=== PATIENT | female | born 1960 | race Caucasian/White ===

== ENCOUNTER 2021-11-01 09:50 | Emergency (ER) | payer MEDICARE, MEDICAID, SELFPAY ==
--- NOTE | ~2021-11-01 | CT_ITS ---
EXAMINATION: CT ABDOMEN AND PELVIS WITHOUT CONTRAST CLINICAL INFORMATION: Hematuria COMPARISON: None TECHNIQUE: Multidetector volumetric imaging was performed from the superior aspect of the liver through the pubic symphysis. Sagittal and coronal reformatted images were obtained on the technologist's workstation. This CT examination was performed using dose optimization techniques as appropriate, variously including the following: *Automated exposure control *Adjustment of mA and/or kV according to patient size (this includes techniques or standardized protocols for targeted exams where dose is matched to indication/reason for exam; i.e. extremities or head) *Use of iterative reconstruction technique DLP: 9 7 mGy-cm FINDINGS: LUNG BASES: The visualized lung bases are unremarkable. LIVER, GALLBLADDER, AND BILIARY TREE: The liver is normal in size, shape, and attenuation. No focal hepatic lesion or biliary ductal dilatation is present. The gallbladder is unremarkable with no evidence of radiopaque gallstones, gallbladder wall thickening, or obvious pericholecystic inflammatory changes. PANCREAS: Unremarkable. SPLEEN: Unremarkable. ADRENAL GLANDS: Unremarkable. KIDNEYS AND URETERS: The kidneys are normal in size, shape, and attenuation. There is a small 3 mm nonobstructing stone in the upper pole of the left kidney. No hydronephrosis. No perinephric stranding. BLADDER: Unremarkable. GASTROINTESTINAL TRACT: There is diverticulosis of the colon. There is wall thickening of the proximal sigmoid colon and stranding of the surrounding fat probably representing sigmoid diverticulitis. There are prominent adjacent pericolic lymph nodes. Imaging follow-up to exclude The small and large bowel are otherwise unremarkable. The appendix is unremarkable. No evidence of obstruction, perforation or abscess is seen. ABDOMINAL WALL: No significant hernia is appreciated. LYMPH NODES: Normal. VASCULAR: There is evidence of atherosclerotic disease. PELVIC VISCERA: Unremarkable. OSSEOUS STRUCTURES: There are degenerative changes of the spine. CT/CT abdomen pelvis wo con IMPRESSION: Sigmoid diverticulitis. There are prominent adjacent pericolic lymph nodes and imaging follow-up to ensure resolution recommended. Small nonobstructing left renal stone. Fleischner guidelines were followed.
[2021-11-01 10:12] VITALS: BP 149/94; PULSE 92; RESP 18; TEMP 36.7; O2SAT 99; BMI 39.1
--- NOTE | 2021-11-01 11:08 | ED_ITS ---
HPI - General Adult General Chief complaint: General Medical <JOLYNN Isidro - Last Filed: 11/01/21 13:09> Stated complaint: abd pain <JOLYNN Isidro Last Filed: 11/01/21 13:09> Time Seen by Provider: 11/01/21 11:08 <JOLYNN Isidro - Last Filed: 11/01/21 13:09> Source: patient <JOLYNN Isidro - Last Filed: 11/01/21 13:09> Mode of arrival: ambulatory <JOLYNN Isidro - Last Filed: 11/01/21 13:09> History of Present Illness HPI narrative: 60-year-old female with no significant past medical history presenting to the ED complaining of LLQ/suprapubic abdominal pain, nausea x6 days and hematuria x2 days. Also reports URI symptoms x1 week. Denies fever, chills, vomiting, diarrhea, constipation, dysuria <JOLYNN Isidro - Last Filed: 11/01/21 13:09> Onset (ago): day(s) <JOLYNN Isidro - Last Filed: 11/01/21 13:09> Related Data Home medications: Previous Rx's Medication Instructions Recorded ciprofloxacin HCl 500 mg tablet 500 mg PO BID 7 Days #14 tab 11/01/21 metronidazole 500 mg tablet 500 mg PO Q8H 7 Days #21 tab 11/01/21 ondansetron 4 mg disintegrating 4 mg PO Q8H PRN #10 tab 11/01/21 tablet <JOLYNN Isidro Last Filed: 11/01/21 13:09> Allergies/adverse reactions: Allergies Allergy/AdvReac Type Severity Reaction Status Date / Time amoxicillin [Augmentin] Allergy Unknown Unknown Verified 11/01/21 12:24 cheese Allergy Unknown UNKNOWN Verified 11/01/21 12:24 clavulanic acid [Augmentin] Allergy Unknown Rash Verified 11/01/21 12:24 fluconazole [Diflucan] Allergy Unknown Unknown Verified 11/01/21 12:24 lisinopril Allergy Unknown Unknown Verified 11/01/21 12:24 nitrofurantoin [Macrobid] Allergy Unknown Rash Verified 11/01/21 12:24 wheat [WHEAT] Allergy Unknown UNKNOWN Verified 11/01/21 12:24 CHOCOLATE Allergy Unknown UNKNOWN Uncoded 11/01/21 12:24 Tdap Allergy Unknown Unknown Uncoded 11/01/21 12:24 <JOLYNN Isidro - Last Filed: 11/01/21 13:09> Review of Systems Review of Systems: Constitutional: No Fever, No Chills, No Fatigue, No Malaise ENT/Mouth: No Ear Pain, No Nasal Congestion, No sore throat, No Rhinorrhea, No Swallowing Difficulty Eyes: No Eye Pain, No Swelling, No Redness, No Discharge Cardiovascular: No Chest Pain, No SOB, No Dyspnea on Exertion, No Orthopnea, No Edema Respiratory: No Cough, No Sputum, No Dyspnea Gastrointestinal: + Nausea, No Vomiting, No Diarrhea, No Constipation, + Abdominal pain, No rectal bleeding Genitourinary: No irregular bleeding, No Dysuria, + Urinary Frequency, + Hematuria, No Urinary Incontinence, No Urgency, No Flank Pain, No Urinary Flow Changes Musculoskeletal: No joint pain, No Myalgias, No Joint Swelling Skin: No Skin Lesions, No rash Neuro: No Weakness, No Numbness, No Headache <JOLYNN Isidro - Last Filed: 11/01/21 13:09> Yes all other systems are reviewed and are negative <JOLYNN Isidro Last Filed: 11/01/21 13:09> [facility] Past Medical History Attestation statement: The following information was validated with the patient. <JOLYNN Isidro - Last Filed: 11/01/21 13:09> Medical History: Medical History No known health problems <JOLYNN Isidro - Last Filed: 11/01/21 13:09> Social History Social History: Social History Advance Directives: Yes Advance Directives Information Provided: Yes Advance Directives on File: No Patient : No <JOLYNN Isidro - Last Filed: 11/01/21 13:09> Physical Exam ED Vital Signs: Vital Signs - 24 hr 11/01/21 10:12 11/01/21 12:04 Temperature 98.1 F 98.2 F Pulse Rate 92 86 Respiratory Rate 18 12 Blood Pressure 149/94 H 189/76 H Pulse Oximetry 99 99 BMI result Body Mass Index 39.1 <JOLYNN Isidro - Last Filed: 11/01/21 13:09> Const General: cooperative, healthy appearing, no acute distress, alert and awake <JOLYNN Isidro - Last Filed: 11/01/21 13:09> Orientation/consciousness: patient oriented x3 <JOLYNN Isidro - Last Filed: 11/01/21 13:09> Limitations: no limitations <JOLYNN Isidro - Last Filed: 11/01/21 13:09> HENMT Head: Yes normal to inspection <JOLYNN Isidro - Last Filed: 11/01/21 13:09> Ears: hearing grossly normal bilaterally <JOLYNN Isidro - Last Filed: 11/01/21 13:09> General nose exam: Normal external nose present <JOLYNN Isidro - Last Filed: 11/01/21 13:09> Face and sinus: Yes normal facial exam <JOLYNN Isidro - Last Filed: 11/01/21 13:09> Eyes General: appearance normal, both eyes and all related structures <JOLYNN Isidro - Last Filed: 11/01/21 13:09> EOM: EOMs intact bilaterally <JOLYNN Isidro - Last Filed: 11/01/21 13:09> Neck Neck: Yes normal visual inspection and Yes no meningeal signs <JOLYNN Isidro - Last Filed: 11/01/21 13:09> Resp Effort & Inspection: normal respiratory effort and no respiratory distress <JOLYNN Isidro - Last Filed: 11/01/21 13:09> Auscultation: clear to auscultation bilaterally <JOLYNN Isidro - Last Filed: 11/01/21 13:09> Cardio Rate: regular rate <JOLYNN Isidro - Last Filed: 11/01/21 13:09> Heart sounds: S1 normal heart sound present and S2 normal heart sound present <JOLYNN Isidro - Last Filed: 11/01/21 13:09> GI Inspection: Yes normal to inspection <JOLYNN Isidro - Last Filed: 11/01/21 13:09> Palpation (GI): Soft to palpation, Tenderness to palpation present (GI) in the LLQ, no guarding and not rigid <JOLYNN Isidro - Last Filed: 11/01/21 13:09> General: Yes CVA tenderness on the left <JOLYNN Isidro - Last Filed: 11/01/21 13:09> Back/Spine/Pelvis Back: CVA tenderness <JOLYNN Isidro - Last Filed: 11/01/21 13:09> Skin Rashes: no rashes <JOLYNN Isidro - Last Filed: 11/01/21 13:09> Wounds: no wounds <JOLYNN Isidro - Last Filed: 11/01/21 13:09> Neuro General: patient oriented x3 and no meningeal signs <JOLYNN Isidro - Last Filed: 11/01/21 13:09> Gait exam (Neuro): Normal gait present <JOLYNN Isidro - Last Filed: 11/01/21 13:09> Extrem General: Yes normal to inspection <JOLYNN Isidro - Last Filed: 11/01/21 13:09> Course Course Course Narrative: -1254--no leukocytosis, BUN 18, bilirubin 1.4, labs otherwise unremarkable -COVID-19/influenza/RSV negative. UA infected CT abdomen pelvis wo con IMPRESSION: Sigmoid diverticulitis. There are prominent adjacent pericolic lymph nodes and imaging follow-up to ensure resolution recommended. Small nonobstructing left renal stone. Fleischner guidelines were followed. >> patient given 1st dose of Levaquin and Flagyl in the ED which will cover both diverticulitis and UTI. Discussed worrisome signs and symptoms and strict return precautions and needed close follow-up with PCP. Patient verbalized understanding and feel safe for discharge home at this time <JOLYNN Isidro - Last Filed: 11/01/21 13:09> Medical Decision Making MDM Narrative Medical decision making narrative: 60-year-old female with no significant past medical history presenting to the ED complaining of LLQ/suprapubic abdominal pain, nausea x6 days and h ematuria x2 days. On exam vital signs stable, NAD/non toxic appearing, abdomen soft with LLQ ttp no rebound or guarding, left CVA tenderness noted on exam. Concern for renal stone/renal colic vs pyelonephritis/UTI vs diverticulitis. Lower concern for SBO/appendicitis Plan: Labs, UA, CT abdomen/pelvis, IVF, symptomatic treatment, re-evaluate <JOLYNN Isidro - Last Filed: 11/01/21 13:09> Medical Records Medical records reviewed: Yes I reviewed the patient's medical records. <JOLYNN Isidro - Last Filed: 11/01/21 13:09> Lab Data Lab results reviewed: Yes I reviewed the patient's lab results. <JOLYNN Isidro - Last Filed: 11/01/21 13:09> Result diagrams: : 11/01/21 11:57 11/01/21 11:57 <JOLYNN Isidro - Last Filed: 11/01/21 13:09> Labs: Lab Results 11/01/21 11/01/21 11/01/21 Range/Units 11:54 11:57 11:57 WBC 10.3 (4.8-10.8) X10*3/uL RBC 4.10 L (4.20-5.50) X10*6/uL Hgb 12.6 (12.0-16.0) g/dl Hct 38.3 (37.0-47.0) % MCV 93.4 (80.0-98.0) fL MCH 30.7 (27.0-33.0) pg MCHC 32.9 (31.0-35.0) g/dl RDW 13.8 (11.0-16.0) % Plt Count 221 (160-400) X10*3/uL MPV 9.3 L (9.4-12.3) fL Immature Gran % (Auto) 0.3 (0.0-0.4) % Neut % (Auto) 70.6 (45-73) % Lymph % (Auto) 22.3 (20-40) % [place] % (Auto) 5.5 (2-11) % Eos % (Auto) 0.9 (0-4) % Baso % (Auto) 0.4 (0-2) % Lymph # (Auto) 2.3 (1.2-4.9) X10*3/uL [place] # (Auto) 0.6 (0.1-1.2) X10*3/uL Eos # (Auto) 0.1 (0.0-0.4) X10*3/uL Baso # (Auto) 0.0 (0.0-0.2) X10*3/uL Abs Immat Gran (auto) 0.03 (0.00-0.03) X10*3/uL Absolute Neuts (auto) 7.3 (2.0-8.3) x10*3/uL Absolute Nucleated RBC 0.000 (0.0-0.012) X10*3/uL Nucleated RBC % (auto) 0.0 (0.0-0.2) /100WBC Sodium 138 (135-145) mmol/L Potassium 4.3 (3.3-5.1) mmol/L Chloride 102 (96-108) mmol/L Carbon Dioxide 27 (22-29) mmol/L Anion Gap 13 (12-20) BUN 18 H (9-16) mg/dL Creatinine 0.84 (0.5-1.4) mg/dL Estim Creat Clear Calc 82.4 Estimated GFR > 60 Random Glucose 105 (60-115) mg/dL Calcium 9.5 (8.4-10.2) mg/dL Magnesium 2.2 (1.6-2.6) mg/dL Total Bilirubin 1.4 H (0.0-1.0) mg/dL Direct Bilirubin 0.5 (0.0-0.5) mg/dL AST 20 (5-31) U/L ALT 14 (0-31) U/L Alkaline Phosphatase 65 (39-117) U/L Total Protein 8.1 H (6.5-8.0) g/dL Albumin 4.3 (3.5-5.0) g/dL Lipase 19 (8-78) U/L Urine Color Urine Appearance Urine pH (5.0-8.0) Ur Specific [place] (1.005-1.025) Urine Protein (NEG-TRACE) MG/DL Urine Glucose (UA) (NEG) MG/DL Urine Ketones (NEG) MG/DL Urine Blood (NEG) Urine Nitrite (NEG) Ur Leukocyte Esterase (NEG) Urine RBC (0) /HPF Urine WBC (0-4) /HPF Ur Squamous Epith Cells /LPF Urine Bacteria /LPF Influenza Type A (PCR) NEGATIVE (Negative) Influenza Type B (PCR) NEGATIVE (Negative) RSV RNA Qual (PCR) NEGATIVE (Negative) SARS-CoV-2 RNA (RT-PCR) NEGATIVE (Negative) 11/01/21 Range/Units 12:06 WBC (4.8-10.8) X10*3/uL RBC (4.20-5.50) X10*6/uL Hgb (12.0-16.0) g/dl Hct (37.0-47.0) % MCV (80.0-98.0) fL MCH (27.0-33.0) pg MCHC (31.0-35.0) g/dl RDW (11.0-16.0) % Plt Count (160-400) X10*3/uL MPV (9.4-12.3) fL Immature Gran % (Auto) (0.0-0.4) % Neut % (Auto) (45-73) % Lymph % (Auto) (20-40) % [place] % (Auto) (2-11) % Eos % (Auto) (0-4) % Baso % (Auto) (0-2) % Lymph # (Auto) (1.2-4.9) X10*3/uL [place] # (Auto) (0.1-1.2) X10*3/uL Eos # (Auto) (0.0-0.4) X10*3/uL Baso # (Auto) (0.0-0.2) X10*3/uL Abs Immat Gran (auto) (0.00-0.03) X10*3/uL Absolute Neuts (auto) (2.0-8.3) x10*3/uL Absolute Nucleated RBC (0.0-0.012) X10*3/uL Nucleated RBC % (auto) (0.0-0.2) /100WBC Sodium (135-145) mmol/L Potassium (3.3-5.1) mmol/L Chloride (96-108) mmol/L Carbon Dioxide (22-29) mmol/L Anion Gap (12-20) BUN (9-16) mg/dL Creatinine (0.5-1.4) mg/dL Estim Creat Clear Calc Estimated GFR Random Glucose (60-115) mg/dL Calcium (8.4-10.2) mg/dL Magnesium (1.6-2.6) mg/dL Total Bilirubin (0.0-1.0) mg/dL Direct Bilirubin (0.0-0.5) mg/dL AST (5-31) U/L ALT (0-31) U/L Alkaline Phosphatase (39-117) U/L Total Protein (6.5-8.0) g/dL Albumin (3.5-5.0) g/dL Lipase (8-78) U/L Urine Color YELLOW Urine Appearance HAZY Urine pH 6.0 (5.0-8.0) Ur Specific [place] 1.015 (1.005-1.025) Urine Protein NEG (NEG-TRACE) MG/DL Urine Glucose (UA) NEG (NEG) MG/DL Urine Ketones NEG (NEG) MG/DL Urine Blood 1+ H (NEG) Urine Nitrite NEG (NEG) Ur Leukocyte Esterase 3+ H (NEG) Urine RBC 1-4 (0) /HPF Urine WBC 50-75 H (0-4) /HPF Ur Squamous Epith Cells 1+ /LPF Urine Bacteria 1+ /LPF Influenza Type A (PCR) (Negative) Influenza Type B (PCR) (Negative) RSV RNA Qual (PCR) (Negative) SARS-CoV-2 RNA (RT-PCR) (Negative) <JOLYNN Isidro - Last Filed: 11/01/21 13:09> Discharge Plan Discharge Clinical Impression: Diverticulitis, Left renal stone, UTI (urinary tract infection) <JOLYNN Isidro Last Filed: 11/01/21 13:09> Patient Disposition: Home, Self-Care <JOLYNN Isidro Last Filed: 11/01/21 13:09> Instructions: Diverticulitis (ED), Kidney Stones (ED), Urinary Tract Infection in Women (DC), Diverticulitis Diet (ED) <JOLYNN Isidro Last Filed: 11/01/21 13:09> Additional Instructions: You have diverticulitis which is an infection of her colon as well as a urinary tract infection You have a kidney stone in her left kidney. Ciprofloxacin and Flagyl are antibiotics based take as prescribed. Zofran as antinausea medication, take as needed. In addition take Tylenol /Motrin as needed for pain. Please follow-up with her doctor. Practice a clear liquid diet for the next 2 days. If pain persists or worsen/becomes unbearable, you are unable to eat or drink or spike fever please return to the ED <JOLYNN Isidro - Last Filed: 11/01/21 13:09> Prescriptions: New ciprofloxacin HCl 500 mg tablet 500 mg PO BID 7 Days Qty: 14 0RF metronidazole 500 mg tablet 500 mg PO Q8H 7 Days Qty: 21 0RF ondansetron 4 mg tablet,disintegrating 4 mg PO Q8H PRN (Reason: nausea and vomiting) Qty: 10 0RF <JOLYNN Isidro - Last Filed: 11/01/21 13:09> Referrals: Ronit Oconnell MD [Primary Care Provider] - 2 days Fabian Hendrickson MD [Physician] - 1 week (as needed) Juan Aguilera [Physician] - 1 week (as needed) <JOLYNN Isidro - Last Filed: 11/01/21 13:09> Interventions: ED Discharge Assessment Last Done: 11/01/21 13:43 <JOLYNN Isidro - Last Filed: 11/01/21 13:09> Discharge Date/Time: 11/01/21 13:47 <JOLYNN Isidro - Last Filed: 11/01/21 13:09>
[2021-11-01 12:02] LABS: MANUAL DIFF FLAG NO
[2021-11-01 12:04] VITALS: BP 189/76; PULSE 86; RESP 12; TEMP 36.8; O2SAT 99
[2021-11-01 12:05] LABS: Basophils Percent Auto 0.4 % (0-2); Eosinophils Absolute Auto 0.1 X10*3/uL (0.0-0.4); Eosinophils Percent Auto 0.9 % (0-4); Hematocrit 38.3 % (37.0-47.0); Hemoglobin 12.6 g/dl (12.0-16.0); Imm Gran Abs Auto 0.03 X10*3/uL (0.00-0.03); Imm Gran Pct Auto 0.3 % (0.0-0.4); Lymphocytes Absolute Auto 2.3 X10*3/uL (1.2-4.9); Lymphocytes Percent Auto 22.3 % (20-40); Mean Corpuscular HGB Conc 32.9 g/dl (31.0-35.0); Mean Corpuscular Hemoglobin 30.7 pg (27.0-33.0); Mean Corpuscular Volume 93.4 fL (80.0-98.0); Mean Platelet Volume 9.3 fL (9.4-12.3); Monocytes Absolute Auto 0.6 X10*3/uL (0.1-1.2); Monocytes Percent Auto 5.5 % (2-11); Neutrophils Absolute Auto 7.3 x10*3/uL (2.0-8.3); Neutrophils Percent Auto 70.6 % (45-73); Platelet Count 221 X10*3/uL (160-400); Red Cell Distribution Width 13.8 % (11.0-16.0); White Blood Count 10.3 X10*3/uL (4.8-10.8)
[2021-11-01 12:23] LABS: Appearance Urine HAZY; Color Urine YELLOW; Glucose Urine UA NEG (NEG); Leukocyte Esterase Urine 3+ (NEG); Nitrite Urine NEG (NEG); Specific Gravity - Urine 1.015 (1.005-1.025); UACC Culture Trigger YES; Urine Blood 1+ (NEG); Urine Ketones NEG (NEG); Urine Protein NEG (NEG-TRACE)
[2021-11-01] MEDS: 0.9 % Sodium Chloride 1,000 ML 999 ML IV (12:24)
[2021-11-01] MEDS: ondansetron HCL 4 MG/2 ML VIAL IVPUSH (12:24)
[2021-11-01] MEDS: Ketorolac Tromethamine 15 MG/ML VIAL IVPUSH (12:24)
[2021-11-01 12:29] LABS: Alanine Aminotransferase 14 U/L (0-31); Albumin Level 4.3 g/dL (3.5-5.0); Alkaline Phosphatase 65 U/L (39-117); Anion Gap 13 (12-20); Aspartate Amino Transferase 20 U/L (5-31); Bilirubin Direct 0.5 mg/dL (0.0-0.5); Bilirubin Total 1.4 mg/dL (0.0-1.0); Blood Urea Nitrogen 18 mg/dL (9-16); Calcium 9.5 mg/dL (8.4-10.2); Carbon Dioxide 27 mmol/L (22-29); Chloride 102 mmol/L (96-108); Creatinine Clr Calc Pharmacy 82.4; Estimated Glomerular Filt Rate > 60; Glucose Random 105 mg/dL (60-115); Lipase 19 U/L (8-78); Magnesium 2.2 mg/dL (1.6-2.6); Potassium 4.3 mmol/L (3.3-5.1); Sodium 138 mmol/L (135-145); Total Protein 8.1 g/dL (6.5-8.0)
[2021-11-01 12:36] LABS: Bacteria Urine 1+ /LPF; Squamous Epithelial Cell Urine 1+ /LPF; WBC Urine 50-75 /HPF (0-4)
[2021-11-01 12:44] LABS: Influenza A PCR NEGATIVE (Negative); Influenza B PCR NEGATIVE (Negative); Resp Syncy Virus RNA Qual PCR NEGATIVE (Negative); SARS COV2 PCR INHOUSE NEGATIVE (Negative)
[2021-11-01] MEDS: metroNIDAZOLE 500 MG TABLET PO (13:30)
[2021-11-01] MEDS: levoFLOXacin 750 MG TABLET PO (13:30)
[2021-11-01 13:33] VITALS: BP 173/78; PULSE 80; RESP 18; O2SAT 100
== END 2021-11-01 13:47 | disposition home or self-care (01) ==
PROVIDERS: Physician Assistant; Emergency Provider Emergency Medicine; PCP Pediatrics
DX: K57.32 Diverticulitis of large intestine without perforation or abscess without bleeding (principal); N20.0 Calculus of kidney; N39.0 Urinary tract infection, site not specified; Z20.822 Contact with and (suspected) exposure to COVID-19
CPT/HCPCS: 0241U; 36415; 74176; 80048; 80076; 81001; 83690; 83735; 85025; 87086; 96361; 96374; 96375; 99284; J1885; J2405

== ENCOUNTER → 2022-02-08 08:51 | Outpatient (BNVA) | payer MEDICARE, MEDICAID, SELFPAY | PROVIDERS: PCP Pediatrics; Visit Provider Psychiatry & Neurology Neurology | DX: R42 Dizziness and giddiness (principal); R20.0 Anesthesia of skin; R20.2 Paresthesia of skin; M54.9 Dorsalgia, unspecified; G47.00 Insomnia, unspecified; G47.10 Hypersomnia, unspecified; R25.2 Cramp and spasm | CPT/HCPCS: 99202 ==

== ENCOUNTER 2022-02-21 07:12 | Emergency (ER) | payer MEDICARE, MEDICAID, SELFPAY ==
[2022-02-21 07:18] VITALS: BP 180/83; PULSE 75; RESP 17; TEMP 36.6; O2SAT 94; BMI 40.3
--- NOTE | 2022-02-21 09:42 | ED.DIZZY ---
HPI - Dizziness General Chief Complaint: Dizziness Stated Complaint: NEAR SYNCOPE Time Seen by Provider: 02/21/22 09:11 Source: patient Mode of arrival: EMS Limitations: no limitations History of Present Illness HPI Narrative: 61-year-old female who presents emergency department for evaluation of dizziness. Patient states she got up this morning at 05:30 hours. She states that she then sat down the chair and had a sudden onset of dizziness and lightheadedness. She describes the symptom as the world was spinning. She had associated nausea with no vomiting. She states that the symptoms lasted for approximately 3 minutes and then resolved. She states she has had similar symptoms in the past. The patient states she has been under increased stress since her daughter is been sick with Crohn's disease. She also states that her had a nervous breakdown 2 years ago and this is been stressful for her. 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 She is currently experiencing numbness in her lower extremities and is scheduled for an MRI of her back as an outpatient. MD elicited complaint: dizziness and lightheadedness Pertinent past history: other (Vertigo) Onset (ago): hour(s) (3) Timing: sudden onset Severity: severe Description: sense of movement and room spinning Context: change in body position History of similar symptoms: Yes Exacerbating factors: movement/ambulation Relieving factors: rest Associated symptoms: nausea Stroke scale total: 0 Related Data Home Medications Medication Instructions Recorded Confirmed albuterol sulfate 90 mcg/actuation 1 inh inhalation QID 02/08/22 02/08/22 aerosol inhaler betamethasone dipropionate 0.05 % topical 02/08/22 02/08/22 topical ointment estradiol vaginal 02/08/22 02/08/22 losartan 50 mg tablet 75 mg PO DAILY 02/08/22 02/08/22 Previous Rx's Medication Instructions Recorded ondansetron 4 mg disintegrating 4 mg PO Q8H PRN nausea and 11/01/21 tablet vomiting #10 tabs escitalopram oxalate 10 mg tablet 10 mg PO DAILY #30 tabs 02/08/22 lorazepam 0.5 mg tablet See Rx Instructions PO .COMPLEX 02/16/22 PRN anxiety #2 tabs meclizine 25 mg tablet (Dramamine 25 mg PO TID PRN dizziness #20 tabs 02/21/22 Less Drowsy) Allergies Allergy/AdvReac Type Severity Reaction Status Date / Time amoxicillin [Augmentin] Allergy Unknown Unknown Verified 02/08/22 09:18 cheese Allergy Unknown UNKNOWN Verified 02/08/22 09:18 clavulanic acid [Augmentin] Allergy Unknown Rash Verified 02/08/22 09:18 fluconazole [Diflucan] Allergy Unknown Unknown Verified 02/08/22 09:18 lisinopril Allergy Unknown Unknown Verified 02/08/22 09:18 nitrofurantoin [Macrobid] Allergy Unknown Rash Verified 02/08/22 09:18 wheat [WHEAT] Allergy Unknown UNKNOWN Verified 02/08/22 09:18 CHOCOLATE Allergy Unknown UNKNOWN Uncoded 02/08/22 09:18 Tdap Allergy Unknown Unknown Uncoded 02/08/22 09:18 Review of Systems Review of Systems: Yes all other systems are reviewed and are negative [facility] Past Medical History [facility] Narrative: Social history: The patient denies tobacco, alcohol and drug use Medical History Allergic rhinitis Larsen's palsy Depression Fibroids Fibromyalgia Hepatitis C Herpes simplex labialis HTN (hypertension) Insomnia Lichen planus Migraine No known health problems Urinary frequency Vaginal atrophy Vulvar atrophy Surgical History H/O breast biopsy Hx of tubal ligation Family History Family History Maternal Grandmother Breast cancer Mother HTN (hypertension) Brother Cerebral aneurysm Daughter Crohn's disease Father No problems noted. Social History Social History Advance Directives: Yes Advance Directives Information Provided: Yes Advance Directives on File: No Physical Exam Vital Signs: Vital Signs: Last Vital Signs Temp 98 F 02/21/22 07:18 Pulse 75 02/21/22 07:18 Resp 17 02/21/22 07:18 BP 180/83 H 02/21/22 07:18 Pulse Ox 94 02/21/22 07:18 O2 Del Method 02/21/22 07:18 BMI result Body Mass Index 40.3 Const: General: cooperative and no acute distress Orientation/consciousness: oriented to person and oriented to place Limitations: no limitations HEENT: Head: Yes normal to inspection, Yes normocephalic and Yes atraumatic Ears: external ears normal General nose exam: Normal external nose present Face and sinus: Yes normal facial exam Mouth: Normal oral and palatal mucosa present Throat: Yes posterior oropharynx normal Eyes: General: appearance normal, both eyes and all related structures Pupils: Equal, round and reactive pupils present Neck: Neck: Yes normal visual inspection, Yes no lymphadenopathy, Yes trachea midline and Yes supple Chest: Chest palpation & inspection: normal inspection of the chest and normal palpation of entire chest wall Resp: Effort & Inspection: normal respiratory effort and able to speak in complete sentences Auscultation: clear to auscultation bilaterally Cardio: Rate: regular rate Rhythm: regular rhythm Heart sounds: S1 normal heart sound present, S2 normal heart sound present and no murmurs GI: Inspection: Yes normal to inspection Palpation (GI): Soft to palpation, nontender and no guarding Auscultation: normal bowel sounds : General: Yes no CVA tenderness Back/Spine/Pelvis: Back: no CVA tenderness Skin: General skin exam: no rashes or lesions noted Neuro: Other: The patient has a peripheral cranial nerve 7, she has a very mild left facial droop and when she wrinkles her forehead it is slightly diminished on the left compared to the right-she states this is chronic secondary to her Larsen's palsy which she never fully recovered from General: oriented to person and oriented to place Cranial nerves: Yes Equal, round and reactive pupils present Cognition (Neuro): normal cognition Motor exam (neuro): 5/5 motor strength present throughout Coordination: iirtpm-hp-zzit test normal, yejt-at-kygs test normal and tandem gait normal Extrem: General: Yes normal to inspection Psych: Appearance: grossly normal Speech and movement: Normal speech and movement present Affect: normal affect Attitude: cooperative Thought process: Normal thought process present Thought content: Normal thought content present Course Course Course Narrative: 61-year-old female who presents emergency department for evaluation of sudden onset room spinning vertigo that occurred around 06:00 hours, sensation occurred after position change, was associated with nausea and lasted approximately 3 minutes. Patient has had similar episodes in the past. The patient's initial vital signs revealed an elevated blood pressure of 180/83 otherwise was unremarkable. The patient's neurologic exam did reveal a left peripheral cranial nerve 7 deficit which is residual from her Larsen's palsy and is not new. Patient had no nystagmus and her cerebellar exam was normal. I did order laboratory evaluation includes CBC, CMP, troponin, EKG. Patient was ordered to get normal saline IV x1 L and meclizine 25 mg orally. 1252: Laboratory evaluation was unremarkable including a troponin was below detectable limits. Twelve EKG was unremarkable. The patient is feeling better. Patient's presentation is consistent with positional vertigo. Patient was started on meclizine. She was given printed and verbal instructions discharged home. [facility] - Dizziness Medical Records Attestation: I reviewed the patient's medical records. Lab Data Attestation: I reviewed the patient's lab results. Result diagrams: 02/21/22 09:50 02/21/22 09:50 Labs: Lab Results 02/21/22 02/21/22 02/21/22 Range/Units 09:50 09:50 09:50 WBC 8.1 (4.8-10.8) X10*3/uL RBC 4.29 (4.20-5.50) X10*6/uL Hgb 13.1 (12.0-16.0) g/dl Hct 39.1 (37.0-47.0) % MCV 91.1 (80.0-98.0) fL MCH 30.5 (27.0-33.0) pg MCHC 33.5 (31.0-35.0) g/dl RDW 13.8 (11.0-16.0) % Plt Count 175 (160-400) X10*3/uL MPV 9.2 L (9.4-12.3) fL Immature Gran % (Auto) 0.2 (0.0-0.4) % Neut % (Auto) 76.1 H (45-73) % Lymph % (Auto) 17.3 L (20-40) % [place] % (Auto) 5.2 (2-11) % Eos % (Auto) 0.7 (0-4) % Baso % (Auto) 0.5 (0-2) % Lymph # (Auto) 1.4 (1.2-4.9) X10*3/uL [place] # (Auto) 0.4 (0.1-1.2) X10*3/uL Eos # (Auto) 0.1 (0.0-0.4) X10*3/uL Baso # (Auto) 0.0 (0.0-0.2) X10*3/uL Abs Immat Gran (auto) 0.02 (0.00-0.03) X10*3/uL Absolute Neuts (auto) 6.1 (2.0-8.3) x10*3/uL Absolute Nucleated RBC 0.000 (0.0-0.012) X10*3/uL Nucleated RBC % (auto) 0.0 (0.0-0.2) /100WBC Sodium 139 (135-145) mmol/L Potassium 4.6 (3.3-5.1) mmol/L Chloride 105 (96-108) mmol/L Carbon Dioxide 26 (22-29) mmol/L Anion Gap 13 (12-20) BUN 14 (9-16) mg/dL Creatinine 0.89 (0.5-1.4) mg/dL Estim Creat Clear Calc 72.4 Estimated GFR > 60 Random Glucose 123 H (60-115) mg/dL Calcium 9.3 (8.4-10.2) mg/dL Total Bilirubin 1.1 H (0.0-1.0) mg/dL AST 20 (5-31) U/L ALT 20 (0-31) U/L Alkaline Phosphatase 62 (39-117) U/L Troponin I High Sens < 3.5 (<3.5-17.0) ng/L Total Protein 7.8 (6.5-8.0) g/dL Albumin 4.4 (3.5-5.0) g/dL ECG Data Attestation: I personally reviewed and interpreted this ECG as follows: Interpretation: 1150: Normal sinus rhythm rate of 73, normal UT interval, QRS duration QTC interval, inverted T-wave in lead 3, no ST segment elevation, no ST segment depression, no PACs, no PVCs, this is a normal EKG. Discharge Plan Discharge Clinical Impression: Vertigo Patient Disposition: Home, Self-Care Instructions: Benign Paroxysmal Positional Vertigo (ED) Additional Instructions: Take meclizine 25 mg pills, 1 pill 3 times a day for the next 3 days for dizziness then as needed for dizziness. This medication will make you sleepy. Do not drive or work while taking this medication. Follow-up with your doctor in 2 days. Please return to the emergency department if your symptoms get worse or if you develop any symptoms that are concerning to you. Prescriptions: New meclizine [Dramamine Less Drowsy] 25 mg tablet 25 mg PO TID PRN (Reason: dizziness) Qty: 20 0RF No Action lorazepam 0.5 mg tablet See Rx Instructions PO .COMPLEX PRN (Reason: anxiety) Qty: 2 0RF Rx Instructions: 1 tab 1 hr before MRI , second tablet if needed in 30 min orally Patient should not drive to and from the [rocedure PRN; ondansetron 4 mg tablet,disintegrating 4 mg PO Q8H PRN (Reason: nausea and vomiting) Qty: 10 0RF estradiol 0.01 % (0.1 mg/gram) cream vaginal betamethasone dipropionate 0.05 % ointment topical losartan 50 mg tablet 75 mg PO DAILY albuterol sulfate 90 mcg/actuation HFA aerosol inhaler 1 inh inhalation QID escitalopram oxalate 10 mg tablet 10 mg PO DAILY Qty: 30 6RF
[2022-02-21 09:54] LABS: MANUAL DIFF FLAG NO
[2022-02-21 09:56] LABS: Basophils Percent Auto 0.5 % (0-2); Eosinophils Absolute Auto 0.1 X10*3/uL (0.0-0.4); Eosinophils Percent Auto 0.7 % (0-4); Hematocrit 39.1 % (37.0-47.0); Hemoglobin 13.1 g/dl (12.0-16.0); Imm Gran Abs Auto 0.02 X10*3/uL (0.00-0.03); Imm Gran Pct Auto 0.2 % (0.0-0.4); Lymphocytes Absolute Auto 1.4 X10*3/uL (1.2-4.9); Lymphocytes Percent Auto 17.3 % (20-40); Mean Corpuscular HGB Conc 33.5 g/dl (31.0-35.0); Mean Corpuscular Hemoglobin 30.5 pg (27.0-33.0); Mean Corpuscular Volume 91.1 fL (80.0-98.0); Mean Platelet Volume 9.2 fL (9.4-12.3); Monocytes Absolute Auto 0.4 X10*3/uL (0.1-1.2); Monocytes Percent Auto 5.2 % (2-11); Neutrophils Absolute Auto 6.1 x10*3/uL (2.0-8.3); Neutrophils Percent Auto 76.1 % (45-73); Platelet Count 175 X10*3/uL (160-400); Red Blood Count 4.29 X10*6/uL (4.20-5.50); Red Cell Distribution Width 13.8 % (11.0-16.0); White Blood Count 8.1 X10*3/uL (4.8-10.8)
[2022-02-21] MEDS: Meclizine HCl 25 MG TABLET PO (10:13)
[2022-02-21] MEDS: 0.9 % Sodium Chloride 1,000 ML 999 ML IV (10:13)
[2022-02-21 10:32] LABS: Alanine Aminotransferase 20 U/L (0-31); Albumin Level 4.4 g/dL (3.5-5.0); Alkaline Phosphatase 62 U/L (39-117); Anion Gap 13 (12-20); Aspartate Amino Transferase 20 U/L (5-31); Bilirubin Total 1.1 mg/dL (0.0-1.0); Blood Urea Nitrogen 14 mg/dL (9-16); Calcium 9.3 mg/dL (8.4-10.2); Carbon Dioxide 26 mmol/L (22-29); Chloride 105 mmol/L (96-108); Creatinine Clr Calc Pharmacy 72.4; Estimated Glomerular Filt Rate > 60; Glucose Random 123 mg/dL (60-115); Potassium 4.6 mmol/L (3.3-5.1); Sodium 139 mmol/L (135-145); Total Protein 7.8 g/dL (6.5-8.0)
[2022-02-21 10:38] LABS: Troponin-I High Sensitivity < 3.5 ng/L (<3.5-17.0)
[2022-02-21 13:11] VITALS: BP 151/80; PULSE 76; RESP 19; O2SAT 97
== END 2022-02-21 13:12 | disposition home or self-care (01) ==
PROVIDERS: Emergency Provider Emergency Medicine Emergency Medical Services
DX: R42 Dizziness and giddiness (principal); I10 Essential (primary) hypertension
CPT/HCPCS: 36415; 80053; 84484; 85025; 96360; 99283; 99284

== ENCOUNTER 2022-03-03 10:17 | Outpatient (REF) | payer MEDICARE, MEDICAID, SELFPAY ==
--- NOTE | ~2022-03-03 | MR_ITS ---
EXAMINATION: MR LUMBAR SPINE WITHOUT CONTRAST CLINICAL INFORMATION: Dorsalgia, unspecified. Patient reports bilateral leg weakness, feet numbness, other radicular symptoms. COMPARISON: CT dated 11/01/2021. TECHNIQUE: MRI of the lumbar spine was obtained using routine sequences without contrast. FINDINGS: VERTEBRAL BODIES AND PARASPINAL STRUCTURES: There are 5 gjt-kdk-vtkqjvh lumbar-type vertebral bodies. Vertebral body heights are normal. No fracture. Minimal grade 1 anterolisthesis of L5 on S1 (3 mm). No pars defects. Mild intervertebral disc desiccation in the lower lumbar spine at L3-L4, L4-L5, and L5-S1. A small fat signal intensity hemangioma is evident in the L5 vertebral body measuring 7 mm in diameter. Marrow signal is otherwise normal. Prominent endplate osteophytes are present at multiple levels in the lower thoracic spine. Tiny marginal endplate osteophytes are evident in the lower lumbar spine. There is moderate facet arthropathy at L4-L5 and more ktbfunla-sd-njicpv facet arthropathy at L5-S1. Tdyh-xf-dsvuorwj sacroiliac osteoarthritis. Colonic diverticulosis at the sigmoid. Paraspinal soft tissues are otherwise unremarkable on these images. CONUS MEDULLARIS AND CAUDA EQUINA: Normal, terminating at the level of L1. SPINAL LEVELS: T12-L1: Minimal degenerative disc disease. Mild facet arthropathy. L1-L2: Mild facet arthropathy. No disc bulge. Central canal and neural foramina are patent. L2-L3: Cjaw-ry-lepopzdi facet arthropathy. Minimal degenerative disc disease. Focal left extraforaminal disc extrusion is suspected at this level, producing mild mass effect upon the exiting left L2 nerve root. L3-L4: Mild annular bulge is asymmetric to the left and produces mild mass effect upon the exiting left L3 nerve root in the left extraforaminal position. Minimal facet arthropathy. L4-L5: Mild diffuse disc bulge. Stus-zn-xlmlzkys facet arthropathy, left side greater than right. The bulge contributes to mild central canal narrowing with abutment of the bilateral traversing L5 nerve roots in the subarticular zone. The bulge minimally narrows the inferior aspects of the foramina without producing significant stenoses. L5-S1: Kqxuziwv-mm-gfqmzl facet arthropathy. No significant central canal or neural foraminal stenoses. MR/MR lumbar spine wo con IMPRESSION: 1. Mild extraforaminal mass effect upon the left L2 and L3 nerve roots due to an extraforaminal extrusion at L2-L3 and an annular bulge at L3-L4. 2. Mild central canal stenosis at L4-L5 due to a disc bulge and facet arthropathy, left side greater than right. 3. Nkwpwnpx-pg-wsfcyt facet arthropathy at L5-S1 with grade 1 anterolisthesis.
== END 2022-03-03 10:18 | disposition home or self-care (01) ==
LOC: HO.MRI 10:17
PROVIDERS: Visit Provider Psychiatry & Neurology Neurology
DX: M54.9 Dorsalgia, unspecified (principal); R20.2 Paresthesia of skin; R20.0 Anesthesia of skin
CPT/HCPCS: 72148

== ENCOUNTER → 2022-03-24 21:08 | Outpatient (REF) | payer MEDICARE, MEDICAID, SELFPAY | LOC: HO.SL 21:08 | PROVIDERS: Visit Provider Psychiatry & Neurology Neurology | DX: G47.33 Obstructive sleep apnea (adult) (pediatric) (principal); G47.61 Periodic limb movement disorder | CPT/HCPCS: 95810 ==

== ENCOUNTER 2022-04-04 08:40 | Emergency (ER) | payer MEDICARE, MEDICAID, SELFPAY ==
--- NOTE | ~2022-04-04 | XR_ITS ---
EXAMINATION: XR CHEST CLINICAL INFORMATION: Shortness of breath, probable COVID positive. COMPARISON: 06/29/2014 chest radiograph. TECHNIQUE: 2 views of the chest were obtained. FINDINGS: No significant abnormality is noted involving the heart, lungs, mediastinum, bony thorax or soft tissues. XR/XR chest 2V IMPRESSION: No acute cardiopulmonary process.
[2022-04-04 08:43] VITALS: BP 179/99; PULSE 90; RESP 19; TEMP 36.8; O2SAT 97; BMI 40.3
--- NOTE | 2022-04-04 10:13 | ED.GENADULT ---
HPI - General Adult General Chief complaint: General Medical Stated complaint: sob, possible covid?, body aches Time Seen by Provider: 04/04/22 09:35 History of Present Illness HPI narrative: Patient complains of runny nose cough body aches fatigue and shortness of breath for 5 days all symptoms started once she is concerned she has COVID, denies any chest pain no nausea or vomiting Related Data Home Medications Medication Instructions Recorded Confirmed albuterol sulfate 90 mcg/actuation 1 inh inhalation QID 02/08/22 02/08/22 aerosol inhaler betamethasone dipropionate 0.05 % topical 02/08/22 02/08/22 topical ointment estradiol 0.01% (0.1 mg/gram) vaginal 02/08/22 02/08/22 vaginal cream losartan 50 mg tablet 75 mg PO DAILY 02/08/22 02/08/22 Previous Rx's Medication Instructions Recorded ondansetron 4 mg disintegrating 4 mg PO Q8H PRN nausea and 11/01/21 tablet vomiting #10 tabs escitalopram oxalate 10 mg tablet 10 mg PO DAILY #30 tabs 02/08/22 lorazepam 0.5 mg tablet See Rx Instructions PO .COMPLEX 02/16/22 PRN anxiety #2 tabs meclizine 25 mg tablet (Dramamine 25 mg PO TID PRN dizziness #20 tabs 02/21/22 Less Drowsy) Allergies Allergy/AdvReac Type Severity Reaction Status Date / Time amoxicillin [Augmentin] Allergy Unknown Unknown Verified 02/08/22 09:18 cheese Allergy Unknown UNKNOWN Verified 02/08/22 09:18 clavulanic acid [Augmentin] Allergy Unknown Rash Verified 02/08/22 09:18 fluconazole [Diflucan] Allergy Unknown Unknown Verified 02/08/22 09:18 lisinopril Allergy Unknown Unknown Verified 02/08/22 09:18 nitrofurantoin [Macrobid] Allergy Unknown Rash Verified 02/08/22 09:18 wheat [WHEAT] Allergy Unknown UNKNOWN Verified 02/08/22 09:18 CHOCOLATE Allergy Unknown UNKNOWN Uncoded 02/08/22 09:18 Tdap Allergy Unknown Unknown Uncoded 02/08/22 09:18 Review of Systems Review of Systems: Positive for dry cough runny nose body aches sore throat fatigue Negatives are no fever no chills no dizziness no weakness no fainting no feeling faint no sinus pressure no sinus congestion no difficulty swallowing no chest pain no pain with deep breath no palpitations no abdominal pain no nausea vomiting or diarrhea, no dysuria no frequency no skin rash Yes all other systems are reviewed and are negative [facility] Past Medical History Source: nursing notes reviewed Medical History Allergic rhinitis Larsen's palsy Depression Fibroids Fibromyalgia Hepatitis C Herpes simplex labialis HTN (hypertension) Insomnia Lichen planus Migraine No known health problems Urinary frequency Vaginal atrophy Vulvar atrophy Surgical History H/O breast biopsy Hx of tubal ligation Family History Family History Maternal Grandmother Breast cancer Mother HTN (hypertension) Brother Cerebral aneurysm Daughter Crohn's disease Father No problems noted. Social History Social History Advance Directives: Yes Advance Directives Information Provided: Yes Advance Directives on File: No Physical Exam ED Vital Signs: Vital Signs - 24 hr 04/04/22 08:43 Temperature 98.2 F Pulse Rate 90 Respiratory Rate 19 Blood Pressure 179/99 H Pulse Oximetry 97 Oxygen Delivery Method Room Air BMI result Body Mass Index 40.3 General appearance no acute distress comfortable no respiratory distress speaking full sentences The eyes no redness or discharge The pharynx no redness swelling or exudate The voice is normal The neck is supple The chest is clear to auscultation with full symmetric equal breath sounds Heart no murmur Abdomen soft nontender Extremities full range of motion x4 Skin no rash Course Course Course Narrative: Patient was positive for COVID D-dimer was 201, negative, troponin under 3.5, EKG was normal sinus rhythm no ischemic changes, no acute changes, rate was 67 Chest x-ray was normal no evidence of any pneumonia Well-appearing patient with positive COVID test is discharged PACS lobe id not recommended now as she has had symptoms for 5 days and she has medications that may interact with Medical Decision Making Lab Data Result diagrams: 04/04/22 11:48 04/04/22 11:48 Labs: Lab Results 04/04/22 04/04/22 04/04/22 Range/Units 11:48 11:48 11:48 WBC 6.4 (4.8-10.8) X10*3/uL RBC 4.19 L (4.20-5.50) X10*6/uL Hgb 12.9 (12.0-16.0) g/dl Hct 38.6 (37.0-47.0) % MCV 92.1 (80.0-98.0) fL MCH 30.8 (27.0-33.0) pg MCHC 33.4 (31.0-35.0) g/dl RDW 13.9 (11.0-16.0) % Plt Count 158 L (160-400) X10*3/uL MPV 9.0 L (9.4-12.3) fL Immature Gran % (Auto) 0.3 (0.0-0.4) % Neut % (Auto) 63.7 (45-73) % Lymph % (Auto) 24.7 (20-40) % [place] % (Auto) 8.4 (2-11) % Eos % (Auto) 2.3 (0-4) % Baso % (Auto) 0.6 (0-2) % Lymph # (Auto) 1.6 (1.2-4.9) X10*3/uL [place] # (Auto) 0.5 (0.1-1.2) X10*3/uL Eos # (Auto) 0.2 (0.0-0.4) X10*3/uL Baso # (Auto) 0.0 (0.0-0.2) X10*3/uL Abs Immat Gran (auto) 0.02 (0.00-0.03) X10*3/uL Absolute Neuts (auto) 4.1 (2.0-8.3) x10*3/uL Absolute Nucleated RBC 0.000 (0.0-0.012) X10*3/uL Nucleated RBC % (auto) 0.0 (0.0-0.2) /100WBC D-Dimer High Sensitivty 201 NG/ML Sodium 138 (135-145) mmol/L Potassium 4.2 (3.3-5.1) mmol/L Chloride 102 (96-108) mmol/L Carbon Dioxide 25 (22-29) mmol/L Anion Gap 15 (12-20) BUN 16 (9-16) mg/dL Creatinine 0.83 (0.5-1.4) mg/dL Estim Creat Clear Calc 77.7 Estimated GFR > 60 Random Glucose 103 (60-115) mg/dL Calcium 8.6 D (8.4-10.2) mg/dL Troponin I High Sens (<3.5-17.0) ng/L COVID-19 ([facility]AYLI) (Negative) COVID-19 Clin Com 04/04/22 04/04/22 Range/Units 11:48 11:48 WBC (4.8-10.8) X10*3/uL RBC (4.20-5.50) X10*6/uL Hgb (12.0-16.0) g/dl Hct (37.0-47.0) % MCV (80.0-98.0) fL MCH (27.0-33.0) pg MCHC (31.0-35.0) g/dl RDW (11.0-16.0) % Plt Count (160-400) X10*3/uL MPV (9.4-12.3) fL Immature Gran % (Auto) (0.0-0.4) % Neut % (Auto) (45-73) % Lymph % (Auto) (20-40) % [place] % (Auto) (2-11) % Eos % (Auto) (0-4) % Baso % (Auto) (0-2) % Lymph # (Auto) (1.2-4.9) X10*3/uL [place] # (Auto) (0.1-1.2) X10*3/uL Eos # (Auto) (0.0-0.4) X10*3/uL Baso # (Auto) (0.0-0.2) X10*3/uL Abs Immat Gran (auto) (0.00-0.03) X10*3/uL Absolute Neuts (auto) (2.0-8.3) x10*3/uL Absolute Nucleated RBC (0.0-0.012) X10*3/uL Nucleated RBC % (auto) (0.0-0.2) /100WBC D-Dimer High Sensitivty NG/ML Sodium (135-145) mmol/L Potassium (3.3-5.1) mmol/L Chloride (96-108) mmol/L Carbon Dioxide (22-29) mmol/L Anion Gap (12-20) BUN (9-16) mg/dL Creatinine (0.5-1.4) mg/dL Estim Creat Clear Calc Estimated GFR Random Glucose (60-115) mg/dL Calcium (8.4-10.2) mg/dL Troponin I High Sens < 3.5 (<3.5-17.0) ng/L COVID-19 ([facility]LI) Positive A (Negative) COVID-19 Clin Com See Note Discharge Plan Discharge Clinical Impression: COVID-19 Patient Disposition: Home, Self-Care Additional Instructions: Your COVID test was positive We workup today including blood tests to rule out blood clot was negative, EKG was normal, heart test was normal, chest x-ray was normal, vital signs were normal No sign of any dangerous condition at this moment Sometimes COVID breathing exercises may help you feel better [employer] Demonstrates breathing technique for coronavirus from the [facility] It also comes up under COVID breathing exercises Return any time any worse condition or any concerns Prescriptions: No Action lorazepam 0.5 mg tablet See Rx Instructions PO .COMPLEX PRN (Reason: anxiety) Qty: 2 0RF Rx Instructions: 1 tab 1 hr before MRI , second tablet if needed in 30 min orally Patient should not drive to and from the [rocedure PRN; ondansetron 4 mg tablet,disintegrating 4 mg PO Q8H PRN (Reason: nausea and vomiting) Qty: 10 0RF meclizine [Dramamine Less Drowsy] 25 mg tablet 25 mg PO TID PRN (Reason: dizziness) Qty: 20 0RF estradiol 0.01 % (0.1 mg/gram) cream vaginal betamethasone dipropionate 0.05 % ointment topical losartan 50 mg tablet 75 mg PO DAILY albuterol sulfate 90 mcg/actuation HFA aerosol inhaler 1 inh inhalation QID escitalopram oxalate 10 mg tablet 10 mg PO DAILY Qty: 30 6RF Stand Alone Forms: Work/School Release
--- NOTE | 2022-04-04 10:21 | ECG_ITS ---
Test Reason : sob Blood Pressure : / mmHG Vent. Rate : 067 BPM Atrial Rate : 067 BPM P-R Int : 174 ms QRS Dur : 096 ms QT Int : 404 ms P-R-T Axes : 063 037 057 degrees QTc Int : 426 ms Normal sinus rhythm Normal ECG When compared with ECG of 21-JAN-2019 12:27, No significant change was found Referred By: Taye Fitzpatrick Electronically Signed By:MICHAEL NAYAK
[2022-04-04 11:54] LABS: MANUAL DIFF FLAG NO
[2022-04-04 11:55] LABS: Basophils Percent Auto 0.6 % (0-2); Eosinophils Absolute Auto 0.2 X10*3/uL (0.0-0.4); Eosinophils Percent Auto 2.3 % (0-4); Hematocrit 38.6 % (37.0-47.0); Hemoglobin 12.9 g/dl (12.0-16.0); Imm Gran Abs Auto 0.02 X10*3/uL (0.00-0.03); Imm Gran Pct Auto 0.3 % (0.0-0.4); Lymphocytes Absolute Auto 1.6 X10*3/uL (1.2-4.9); Lymphocytes Percent Auto 24.7 % (20-40); Mean Corpuscular HGB Conc 33.4 g/dl (31.0-35.0); Mean Corpuscular Hemoglobin 30.8 pg (27.0-33.0); Mean Corpuscular Volume 92.1 fL (80.0-98.0); Monocytes Absolute Auto 0.5 X10*3/uL (0.1-1.2); Monocytes Percent Auto 8.4 % (2-11); Neutrophils Absolute Auto 4.1 x10*3/uL (2.0-8.3); Neutrophils Percent Auto 63.7 % (45-73); Platelet Count 158 X10*3/uL (160-400); Red Blood Count 4.19 X10*6/uL (4.20-5.50); Red Cell Distribution Width 13.9 % (11.0-16.0); White Blood Count 6.4 X10*3/uL (4.8-10.8)
[2022-04-04 12:08] LABS: COVID-19 Test Positive (Negative); D Dimer High Sensitivity 201 NG/ML; IDNOW Serial# 16C4AD1C
[2022-04-04 12:10] LABS: Anion Gap 15 (12-20); Blood Urea Nitrogen 16 mg/dL (9-16); Calcium 8.6 mg/dL (8.4-10.2); Carbon Dioxide 25 mmol/L (22-29); Chloride 102 mmol/L (96-108); Creatinine Clr Calc Pharmacy 77.7; Estimated Glomerular Filt Rate > 60; Glucose Random 103 mg/dL (60-115); Potassium 4.2 mmol/L (3.3-5.1); Sodium 138 mmol/L (135-145)
[2022-04-04 12:17] LABS: Troponin-I High Sensitivity < 3.5 ng/L (<3.5-17.0)
== END 2022-04-04 13:18 | disposition home or self-care (01) ==
PROVIDERS: Physician Assistant Medical; Emergency Provider Emergency Medicine
DX: U07.1 COVID-19 (principal); R06.02 Shortness of breath
CPT/HCPCS: 36415; 71046; 80048; 84484; 85025; 85379; 87635; 93005; 99283

== ENCOUNTER → 2022-05-24 09:49 | Outpatient (BNVA) | payer MEDICARE, MEDICAID, SELFPAY | PROVIDERS: PCP Internal Medicine; Visit Provider Psychiatry & Neurology Neurology | DX: R42 Dizziness and giddiness (principal); G47.00 Insomnia, unspecified; M54.9 Dorsalgia, unspecified; G47.33 Obstructive sleep apnea (adult) (pediatric); G47.61 Periodic limb movement disorder | CPT/HCPCS: 99212 ==

== ENCOUNTER 2022-09-24 08:58 | Emergency (ER) | payer MEDICARE, MEDICAID, SELFPAY ==
[2022-09-24 09:01] VITALS: BP 144/91; PULSE 100; RESP 20; TEMP 36.7; O2SAT 95; BMI 40.2
--- NOTE | 2022-09-24 09:04 | ED_ITS ---
HPI - Neck Pain/Injury General Chief Complaint: General Medical Stated Complaint: neck pain down l arm pain Time Seen by Provider: 09/24/22 09:04 Source: patient Mode of arrival: ambulatory Limitations: no limitations History of Present Illness HPI Narrative: 61 yo female with history of fibromyalgia, STAS, obesity, hx Isabella fever who presents to the ER with non-traumatic left arm pain and left neck pain for the last 4 days. She reports a burning type pain in the upper arm, upper back and neck. 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 She denies any falls of specific injury. She reports the pain waxes and wanes. She denies any numbness or tingling in the arm. MD complaint: neck pain and upper back pain Onset (ago): day(s) (4) Place: home Radiation: left lateral, left shoulder, upper back and left upper extremity Severity: moderate Severity scale (1-10): 7 Quality: burning Duration: intermittent Relieving factors: none Exacerbating factors: movement of extremity and movement of neck Context: lifting Associated symptoms: none Treatments prior to arrival: none Related Data Home Medications Medication Instructions Recorded Confirmed albuterol sulfate 90 mcg/actuation 1 inh inhalation QID 02/08/22 05/24/22 aerosol inhaler betamethasone dipropionate 0.05 % topical 02/08/22 05/24/22 topical ointment estradiol 0.01% (0.1 mg/gram) vaginal 02/08/22 05/24/22 vaginal cream losartan 50 mg tablet 75 mg PO DAILY 02/08/22 05/24/22 Previous Rx's Medication Instructions Recorded ondansetron 4 mg disintegrating 4 mg PO Q8H PRN nausea and 11/01/21 tablet vomiting #10 tabs meclizine 25 mg tablet (Dramamine 25 mg PO TID PRN dizziness #20 tabs 02/21/22 Less Drowsy) gabapentin 300 mg capsule 300 mg PO BEDTIME #30 caps 05/26/22 cyclobenzaprine 10 mg tablet 10 mg PO TID PRN muscle spasm #14 09/24/22 tabs lidocaine 5 % topical patch 1 patch topical DAILY #15 ea 09/24/22 prednisone 50 mg tablet 50 mg PO DAILY #5 tabs 09/24/22 Allergies Allergy/AdvReac Type Severity Reaction Status Date / Time amoxicillin [Augmentin] Allergy Unknown Unknown Verified 05/24/22 09:52 cheese Allergy Unknown UNKNOWN Verified 05/24/22 09:52 clavulanic acid [Augmentin] Allergy Unknown Rash Verified 05/24/22 09:52 fluconazole [Diflucan] Allergy Unknown Unknown Verified 05/24/22 09:52 lisinopril Allergy Unknown Unknown Verified 05/24/22 09:52 nitrofurantoin [Macrobid] Allergy Unknown Rash Verified 05/24/22 09:52 wheat [WHEAT] Allergy Unknown UNKNOWN Verified 05/24/22 09:52 CHOCOLATE Allergy Unknown UNKNOWN Uncoded 05/24/22 09:52 Tdap Allergy Unknown Unknown Uncoded 05/24/22 09:52 Review of Systems Review of Systems: Yes all other systems are reviewed and are negative [facility] Past Medical History Medical History Allergic rhinitis Larsen's palsy Depression Fibroids Fibromyalgia Hepatitis C Herpes simplex labialis HTN (hypertension) Insomnia Lichen planus Migraine No known health problems Urinary frequency Vaginal atrophy Vulvar atrophy Surgical History H/O breast biopsy Hx of tubal ligation Family History Family History Maternal Grandmother Breast cancer Mother HTN (hypertension) Brother Cerebral aneurysm Daughter Crohn's disease Father No problems noted. Social History Social History Alcohol intake: never Patient Tobacco Use Status: Never used Tobacco Advance Directives: No Advance Directives Information Provided: No Physical Exam Vital Signs: Vital Signs: Last Vital Signs Temp 98.0 F 09/24/22 09:01 Pulse 100 09/24/22 09:01 Resp 20 09/24/22 09:01 BP 144/91 H 09/24/22 09:01 Pulse Ox 95 09/24/22 09:01 O2 Del Method 09/24/22 09:01 BMI result Body Mass Index 40.2 Appearance: Alert. Oriented X3. No acute distress. HEENT: normal inspection Neck: normal inspection, no midline tenderness. +pain with axial load CVS: Normal heart rate and rhythm. Pulses normal. Respiratory: No respiratory distress. Skin: Skin warm and dry. Normal skin color. Normal skin turgor. No rashes. Extremities: normal inspection. left upper arm with soft tissue tenderness of the bicep, upper trapezius and deltoid. Neuro: Oriented X 3. No motor deficit. No sensory deficit. Equal and symmetrical strength throughout Course Course Course Narrative: 61 yo female with history of fibromyalgia presenting with burning left arm pain and neck pain. Exam and clincial presentation are most consistent with cervical radiculopathy, possible flare of fibromyalgia. She has no neuro deficits. She has a new PCP and will follow up with them for further management. Will treat with steroids, muscle relaxer, lidoderm, heat and massage. Patient agrees with plan and is stable for d/c home, outpatient follow up. Medical Decision Making Medical Decision Making [facility] Narrative: 61 yo female w/ neck and arm pain. neuro intact. Differential Diagnosis Differential Diagnoses: The differential diagnosis associated with the presentation includes cervical radiculopathy, fibromyalgia flare, arthritis, muscle spasm, cervical disc herniation, less likely stroke, dissection Independent Historian Clinical information obtained from an independent historian. History obtained from or confirmed by: Other (son helps provide history) External Record Review External record reviewed: Outpatient record, Prior outpatient labs and Prior outpatient radiology has had lumbar MRI in the past but no cervical MRI Tests considered The following testing was considered but not selected: XR and CT scan considered but will defer to PCP for now, may benefit from MRI if symptoms persist Prescription Management I considered prescription management with: Pain Medication Critical Care Time Critical Care Time Critical Care Time: No Discharge Plan Discharge Clinical Impression: Cervical radiculopathy, Muscle spasm Patient Disposition: Home, Self-Care Instructions: Cervical Radiculopathy (ED), Muscle Spasm (ED) Additional Instructions: No bending, lifting or twisting. Use a heating pad to the area on low-medium heat several times per day. Take medications as prescribed to help with pain and discomfort. Follow up with your Primary Care Doctor next week. If your pain worsens, if you develop new numbness, tingling,loss of function or any other concerning symptoms call 911 or come back to the ER right away for evaluation. Prescriptions: New prednisone 50 mg tablet 50 mg PO DAILY Qty: 5 0RF cyclobenzaprine 10 mg tablet 10 mg PO TID PRN (Reason: muscle spasm) Qty: 14 0RF lidocaine 5 % adhesive patch,medicated 1 patch topical DAILY Qty: 15 0RF Rx Instructions: leave on most painful area for up to 12 hrs No Action gabapentin 300 mg capsule 300 mg PO BEDTIME Qty: 30 6RF ondansetron 4 mg tablet,disintegrating 4 mg PO Q8H PRN (Reason: nausea and vomiting) Qty: 10 0RF meclizine [Dramamine Less Drowsy] 25 mg tablet 25 mg PO TID PRN (Reason: dizziness) Qty: 20 0RF estradiol 0.01 % (0.1 mg/gram) cream vaginal betamethasone dipropionate 0.05 % ointment topical losartan 50 mg tablet 75 mg PO DAILY albuterol sulfate 90 mcg/actuation HFA aerosol inhaler 1 inh inhalation QID Referrals: Aleah Garcia MD [Primary Care Provider] -
== END 2022-09-24 09:54 | disposition home or self-care (01) ==
PROVIDERS: Emergency Provider Student in an Organized Health Care Education/Training Program; PCP Internal Medicine
DX: M54.12 Radiculopathy, cervical region (principal); M62.838 Other muscle spasm; M54.2 Cervicalgia; I10 Essential (primary) hypertension
CPT/HCPCS: 99282; 99283